=== PATIENT | female | born 1995 | race Caucasian/White ===

== ENCOUNTER 2018-02-19 15:08 | Emergency (ER) | payer OTHER ==
--- NOTE | 2018-02-19 15:44 | PDOC ---
Rapid Medical Evaluation Time Seen by Provider: 02/19/18 15:38 Medical Evaluation: Allergies Allergy/AdvReac Type Severity Reaction Status Date / Time No Known Allergies Allergy Verified 01/19/13 17:06 02/19/18 15:38 I have performed a brief in-person evaluation of this patient. The patient presents with a chief complaint of: miss SANDOVAL, 13wks,s/p misoprostol at [facility], sent from clinic for pelvic sono to check for retained products, denies dizziness, heavy vaginal bleeding Pertinent physical exam findings:Abd: soft, NT/ND I have ordered the following:pelvic sono The patient will proceed to Fast track for further evaluation. 02/19/18 15:44 02/19/18 15:48
[2018-02-19 15:45] VITALS: BP 125/72; PULSE 112; TEMP 98.3; BMI 26.4
--- NOTE | 2018-02-19 17:45 | PDOC ---
History of Present Illness - General Chief Complaint: Revisit,Radiology Variance Stated Complaint: REPEAT ULTRASOUND Time Seen by Provider: 02/19/18 15:38 History Source: Patient Exam Limitations: No Limitations - History of Present Illness Initial Comments: 02/19/18 17:45 Patient was seen at [facility]/same day surgery center 5 days ago with abdominal cramping and bleeding, was noted to be at that time with beta hCG of 6500. Was given mesoprostil Monday morning at Dr. Bates's office and states cramping and bleeding occurred almost immediately. States was so severe she went back to emergency department where she bled profusely and states "completed the miscarriage in the ER" after the ultrasound was obtained. Patient states all this noted by Dr. Bates, who saw her again today and recommended return to emergency department for ultrasound to rule out retained products , as patient has continued cramping although minimal bleeding. Denies fever, nausea vomiting, any dysuria or bowel changes. Timing/Duration: unsure Severity: mild, moderate Associated Symptoms: reports: denies symptoms Past History - Travel Traveled outside of the country in the last 30 days: No Close contact w/someone who was outside of country & ill: No - Past Medical History Allergies/Adverse Reactions: Allergies Allergy/AdvReac Type Severity Reaction Status Date / Time No Known Allergies Allergy Verified 02/19/18 15:39 Home Medications: Ambulatory Orders No Home Medications 0 dose .ROUTE UTDICT 01/19/13 COPD: No Other medical history: DENIES. - Suicide/Smoking/Psychosocial Hx Smoking Status: No Smoking History: Never smoked Number of Cigarettes Smoked Daily: 0 Review of Systems - Review of Systems Able to Perform ROS?: Yes Is the patient limited Faroese proficient: Yes Constitutional: Yes: Symptoms Reported, See HPI, Malaise. No: Fever ABD/GI: Yes: See HPI, Nausea. No: Symptoms Reported : Yes: See HPI. No: Symptoms Reported, Burning, Dysuria All Other Systems: Reviewed and Negative *Physical Exam - Vital Signs Last Vital Signs Temp Pulse Resp BP Pulse Ox 98.3 F 112 H 19 125/72 100 02/19/18 15:39 02/19/18 15:39 02/19/18 15:39 02/19/18 15:39 02/19/18 15:39 - Physical Exam General Appearance: Yes: Nourished, Appropriately Dressed, Apparent Distress HEENT: positive: SANCHEZ, Normal ENT Inspection, Normal Voice, TMs Normal, Pharynx Normal Neck: positive: Supple. negative: Tender, Lymphadenopathy (R), Lymphadenopathy (L) Respiratory/Chest: positive: Lungs Clear Gastrointestinal/Abdominal: positive: Soft. 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 Patient given these results and will follow up with her PMD/Dr. Bates *DC/Admit/Observation/Transfer Diagnosis at time of Disposition: Spontaneous - Discharge Dispostion Disposition: HOME Condition at time of disposition: Stable Decision to Admit order: No - Referrals Referrals: Tamica Bates MD [Staff Physician] - - Patient Instructions Printed Discharge Instructions: DI for Miscarriage Additional Instructions: Rest, drink lots of fluids: Water, soups, Pedialyte, teas Increase iron rich foods including beans, spinach, green leafy vegetables Follow-up with Dr. Bates as scheduled - Post Discharge Activity Forms/Work/School Notes: Back to Work
== END 2018-02-19 18:35 | disposition home or self-care (01) ==
LOC: JERFT 15:08
DX: O03.9 Complete or unspecified spontaneous abortion without complication (principal)
CPT/HCPCS: 36415; 76817-TC; 84702; 99281-25